=== PATIENT | male | born 1980 ===

== ENCOUNTER 2016-05-21 09:14 | Inpatient (IN) | payer MEDICAID ==
--- NOTE | 2016-05-21 10:03 | C.PDOC ---
History Of Present Illness 35 y/o male, whose PMHx includes anxiety and depression, presents to the ED complaining of hearing voices. Patient reports history of heroin abuse and states last use was yesterday. He denies any suicidal ideation, homicidal ideation, or physical complaints. Time Seen by Provider: 05/21/16 09:33 Chief Complaint (Nursing): Psychiatric Evaluation History Per: Patient History/Exam Limitations: no limitations Onset/Duration Of Symptoms: Days, Gradual, Persistent Current Symptoms Are (Timing): Still Present Suicide/Self Injury Attempted (Context): None Modifying Factor(s): Other (heroin) Involuntary Hold By: None Recent travel outside of the [place]: No Past Medical History Reviewed: Historical Data, Nursing Documentation, Vital Signs Vital Signs: Last Vital Signs Temp 97.7 F 05/21/16 09:21 Pulse 68 05/21/16 09:21 Resp 16 05/21/16 09:21 BP 114/84 05/21/16 09:21 Pulse Ox 100 05/21/16 12:09 - Medical History PMH: Asthma, Depression, Migraine Surgical History: No Surg Hx Family History: States: Diabetes (mom) - Social History Hx Tobacco Use: No Hx Alcohol Use: Yes (social) Hx Substance Use: Yes - Immunization History Hx Influenza Vaccination: No Review Of Systems Except As Marked, All Systems Reviewed And Found Negative. Musculoskeletal: Negative for: Other (pain) Psych: Positive for: Other (hearing voices). Negative for: Suicidal ideation ( or homicidal ideation) Physical Exam - Physical Exam Appears: Non-toxic, No Acute Distress Skin: Normal Color, Warm, Dry Head: Atraumatic, Normacephalic Eye(s): bilateral: Normal Inspection, PERRL Neck: Normal ROM Chest: Symmetrical Cardiovascular: Rhythm Regular Respiratory: Normal Breath Sounds, No Rales, No Rhonchi, No Wheezing Gastrointestinal/Abdominal: Normal Exam, Soft, No Tenderness Extremity: Normal ROM, No Swelling Neurological/Psych: Oriented x3, Normal Speech, Normal Cognition ED Course And Treatment - Laboratory Results Result Diagrams: 05/21/16 10:01 05/21/16 10:01 Lab Interpretation: Normal O2 Sat by Pulse Oximetry: 100 (ra) Pulse Ox Interpretation: Normal Progress Note: Blood Work and Urinalysis were ordered. Case discussed and patient evaluated by general foundry worker and request admission to Dr Monterroso Reassessment Condition: Unchanged - Physician Consult Information Physician Contacted: Tari Monterroso Outcome Of Conversation: admit Disposition Discussed With DrMarge: Tari Monterroso Doctor Will See Patient In The: Hospital - Disposition Disposition: HOSPITALIZED Disposition Time: 12:20 Condition: STABLE - POA Present On Arrival: None - Clinical Impression Clinical Impression: Schizophrenia, Opioid abuse - PA / MEDICAL RECORDS CLERK / Resident Statement MD/DO has reviewed & agrees with the documentation as recorded. - Scribe Statement The provider has reviewed the documentation as recorded by the Scribe (Susy Garcia) All medical record entries made by the Scribe were at my direction and personally dictated by me. I have reviewed the chart and agree that the record accurately reflects my personal performance of the history, physical exam, medical decision making, and the department course for this patient. I have also personally directed, reviewed, and agree with the discharge instructions and disposition. Decision To Admit - Pt Status Changed To: Hospital Disposition Of: Inpatient - Admit Certification Admit to Inpatient:: After my assessment, the patient will require hospitalization for at least two midnights. This is because of the severity of symptoms shown, intensity of services needed, and/or the medical risk in this patient being treated as an outpatient. - InPatient: Physician Admission Certification: I certify that this patient requires 2 or more midnights of care for the following reason:: Schizophrenia. Opioid abuse - . Bed Request Type: Psychiatry Admitting Physician: Tari Monterroso Patient Diagnosis: Schizophrenia, Opioid abuse
[2016-05-21 10:05] LABS: BASO % 0.5 % (0.0-2.0); EOS # 0.1 K/uL (0.0-0.7); EOS % 1.6 % (0.0-4.0); HEMATOCRIT 41.6 % (35.0-51.0); LYMPH # 1.1 K/uL (1.0-4.3); LYMPH % 17.1 % (20.0-40.0); MEAN CELL VOLUME 85.8 fL (80.0-94.0); MEAN CORPUSCULAR HEMOGLOBIN 28.7 pg (27.0-31.0); MEAN CORPUSCULAR HGB CONC 33.4 g/dL (33.0-37.0); MEAN PLATELET VOLUME 8.8 fL (7.2-11.7); MONO # 0.6 K/uL (0.0-0.8); MONO % 9.3 % (0.0-10.0); RED CELL DISTRIBUTION WIDTH 13.8 % (11.5-14.5); WHITE BLOOD COUNT 6.6 K/uL (4.8-10.8)
[2016-05-21 10:08] LABS: URINE BILIRUBIN NEGATIVE (NEGATIVE); URINE BLOOD NEGATIVE (NEGATIVE); URINE COLOR Straw (YELLOW); URINE GLUCOSE (UA) NORMAL (Normal); URINE KETONE NEGATIVE (NEGATIVE); URINE LEUKOCYTE ESTERASE NEG Leu/uL (Negative); URINE PROTEIN NEGATIVE (NEGATIVE); URINE UROBILINOGEN NORMAL mg/dL (0.2-1.0); WBC URINE 1 /hpf (0-5)
[2016-05-21 10:14] LABS: CHLORIDE 98 mmol/L (98-107); SODIUM 139 mmol/L (132-148)
[2016-05-21 10:15] LABS: POTASSIUM 4.6 mmol/L (3.6-5.2)
[2016-05-21 10:17] LABS: ALB/GLOB RATIO 1.4 (1.0-2.1); ALKALINE PHOSPHATASE 41 U/L (38-126); ALT/SGPT 13 U/L (21-72); AST/SGOT 22 U/L (17-59); BILIRUBIN,TOTAL 0.3 mg/dL (0.2-1.3); BLOOD UREA NITROGEN 15 mg/dL (9-20); CALCIUM 8.9 mg/dl (8.6-10.4); CARBON DIOXIDE 26 mmol/L (22-30); GFR AFRICAN-AMERICAN > 60; GLUCOSE,RANDOM 88 mg/dL (75-110); TOTAL PROTEIN 7.5 g/dL (6.3-8.3)
[2016-05-21 10:18] LABS: ALCOHOL SERUM < 10 mg/dl (0-10)
--- NOTE | 2016-05-22 11:18 | PCM.PSYCH ---
Initial Psychiatric Evaluation - Initial Psychiatric Evaluation Type of Admission: Voluntary Legal Status: Capacity Chief Complaint (in patient's own words): I'm feeling depressed History of Present Illness and Precipitating Events: Pt is a 35 yo M admitted for depressed mood and heroin withdrawal. Pt is single, has 2 children, ages 9 and 4, lives in a [address]cf for the past 2 months, and is currently unemployed (works in construction). Pt complains of depressed mood that began 2 months ago after losing his apartment. Associated symptoms include anhedonia, decreased energy, decreased appetite and poor sleep. Pt states he attempted suicide one month ago by taking pills, for which he received treatment at another hospital. Pt currently denies suicidal ideation , homicidal ideation. Admits to hearing commanding voices. There are multiple voices, both male and female, telling him to hurt himself and others. States he mostly hears the voices at night, which prevents him from sleeping. Also admits to visual hallucinations (shadows following him). States hallucinations resolve while he is on heroin. Pt started using heroin 6 months ago. Currently uses 20 bags per day intravenously. Reportedly tested negative for hepatitis C and HIV two weeks ago. Reports smoking cannabis occasionally and drinking alcohol socially. Smokes 3 cigarettes per day. Denies cocaine, PCP, amphetamine , ketamine, pain pills, benzodiazepines and all other drug use. Pt has no prior history of detox or rehab. 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 Pt currently complaining of withdrawal symptoms including anxiety, nausea, fatigue, rhinorrhea, headache. Denies abdominal cramping, vomiting, diarrhea, back pain, tremors. Psych Hx: Schizophrenia paranoid type, heroin use disorder, cannabis use disorder. Reports one previous psych admission [address] [facility] , follows up at [facility] outpatient services Family Psych Hx: uncle- anxiety and depression PMHx: Asthma, migraine headaches Medications: denies Current Medications: Active Medications Generic Name Dose Route Start Last Admin Trade Name Freq PRN Reason Stop Dose Admin Acetaminophen 650 mg 05/21/16 14:21 Tylenol 325mg Tab PO Q6 PRN Fever >100.4 F Citalopram Hydrobromide 10 mg 05/22/16 10:00 05/22/16 10:34 Celexa PO 10 mg DAILY VINOD Administration Clonidine HCl 0.1 mg 05/21/16 14:22 Catapres PO Q8 PRN COWS Score More or Equal to 5 Dicyclomine HCl 10 mg 05/21/16 14:21 Bentyl PO Q6 PRN Muscle spasm Diphenhydramine HCl 50 mg 05/21/16 14:21 Benadryl PO Q6 PRN Extra Pyramidal Symptoms Loperamide HCl 2 mg 05/21/16 14:21 Imodium PO Q8 PRN Diarrhea Methadone HCl 15 mg 05/22/16 10:00 05/22/16 10:34 Methadone PO 05/25/16 09:59 15 mg DAILY VINOD Administration Taper Ondansetron HCl 4 mg 05/21/16 14:21 Zofran Tab PO Q8H PRN Nausea/Vomiting Trazodone HCl 50 mg 05/21/16 22:00 05/21/16 21:47 Desyrel PO 50 mg HS VINOD Administration Past Psychiatric History - Past Psychiatric History Previous Treatment History: Inpatient Pertinent Medical Hx (Current Medical&Sleep Prob, Allergies): Allergies Allergy/AdvReac Type Severity Reaction Status Date / Time No Known Allergies Allergy Verified 05/21/16 09:21 No Known Home Med 05/21/16 Review of Systems - Review of Systems All systems: reviewed and no additional remarkable complaints except - Psychiatric Psychiatric: Anxiety, Auditory Hallucinations, Irritability, Mood Swings, Paranoia, Suicidal Ideation Mental Status Examination - Personal Presentation Personal Presentation: Looks stated age - Affect Affect: Constricted, Depressed - Motor Activity Motor Activity: Calm - Reliability in Providing Information Reliability in Providing Information: Good - Speech Speech: Organized - Mood Mood: Depressed, Anxious - Formal Thought Process Formal Thought Process: Hallucinations, Delusions, Paranoia - Hallucinations/Delusions Hallucinations: Visual, Auditory Delusions: Persecution - Obsessions/Compulsions Obsessions: No Compulsions: No - Cognitive Functions Orientation: Person, Place, Situation, Time Sensorium: Alert Attention/Concentration: Attentive Abstract Thinking: [place] Estimate of Intelligence: Below average Judgement: Imparied, as evidence by: Poor judgement, Imparied, as evidence by: Lack of insight into illness - Risk Risk: Suicidal, Withdrawal, Diminished functioning - Strength & Assets Inventory Strength & Assets Inventory: Cooperative - Limitations Limitations: Living alone DSM 5 DX - DSM 5 DSM 5 Diagnosis: Schizophrenia paranoid type continuous Opiate use disorder severe Opiate withdrawal Cannabis use disorder moderate - Recommended/Plan of Treatment Treatment Recommendations and Plan of Treatment: Schizophrenia paranoid type continuous CBT Psychoeducation Supportive therapy, group therapy, individual therapy Risperdal 1 mg by mouth twice a day Cogentin 1 mg by mouth twice a day Trazodone 50 mg by mouth daily at bedtime Celexa 10 mg daily Opiate use disorder severe CBT Psychoeducation Supportive therapy, individual therapy Use [place] for abstinence Opiate withdrawal CBT Psychoeducation Supportive therapy, individual therapy Methadone taper Cannabis use disorder moderate CBT and psychoeducation Use [place] for abstinence - Smoking Cessation Smoking Cessation Initiated: No
[2016-05-23] MEDS ORDERED: Propofol 10 mg/ml Inj (20 ML) ONE (10:04)
[2016-05-23] MEDS ORDERED: Midazolam 2 MG/2 ML VIAL ONE ×2 (10:06→11:00)
--- NOTE | 2016-05-23 15:29 | PCM.PYCHPN ---
Psychiatric Progress Note - Psychiatric Progress Note Patient seen today, length of contact: 15 min Patient Chief Complaint: I'm feeling depressed Problems Identified/Issues Discussed: Patient seen and evaluated, chart reviewed and discussed with the nurse. Patient reports irritability and agitation and reports auditory hallucinations and persecutory delusions. He reports racing of thoughts and anxiety. He still reports withdrawal symptoms including nausea, anxiety, headaches and sweating. However he remained calm and cooperative. He is taking medication and denies any side effects. Supportive therapy and psychoeducation were given Medication Change: Yes (Methadone taper) Medical Record Reviewed: Yes Mental Status Examination - Cognitive Function Orientation: Person, Place, Situation, Time Memory: Intact Attention: WNL Concentration: Poor Association: WNL Fund of Knowledge: Poor - Mood Mood: Depressed, Anxious - Affect Affect: Constricted, Depressed - Speech Speech: Soft - Formal Thought Process Formal Thought Process: Hallucinations, Delusions, Paranoia - Suicidal Ideation Suicidal Ideation: No - Homicidal Ideation Homicidal Ideation: No Goal/Treatment Plan - Goal/Treatment Plan Need for Continued Stay: Discharge may exacerbated symptoms, Severe functional impairment Progress Toward Problem(s) and Goals/Treatment Plan: Schizophrenia paranoid type continuous CBT Psychoeducation Supportive therapy, group therapy, individual therapy Risperdal 1 mg by mouth twice a day Cogentin 1 mg by mouth twice a day Trazodone 50 mg by mouth daily at bedtime Celexa 10 mg daily Opiate use disorder severe CBT Psychoeducation Supportive therapy, individual therapy Use [place] for abstinence Opiate withdrawal CBT Psychoeducation Supportive therapy, individual therapy Methadone taper Cannabis use disorder moderate CBT and psychoeducation Use [place] for abstinence - Smoking Cessation Smoking Cessation Initiated: No
--- NOTE | 2016-05-24 18:53 | PCM.PYCHPN ---
Psychiatric Progress Note - Psychiatric Progress Note Patient seen today, length of contact: 15 min Patient Chief Complaint: I'm feeling little better Problems Identified/Issues Discussed: Patient seen and evaluated, chart reviewed and discussed with the nurse. As per staff patient has started attending groups and meetings and remained calm and cooperative. Patient reports improvement in his voices and delusions. Reports improvement in his mood and anxiety. However he is still experiencing withdrawal symptoms including nausea, headaches and sweating. He is taking medication and denies any side effects. Supportive therapy and psychoeducation were given Medication Change: Yes (Methadone taper, increase Risperdal, start Neurontin) Medical Record Reviewed: Yes Mental Status Examination - Cognitive Function Orientation: Person, Place, Situation, Time Memory: Intact Attention: WNL Concentration: Poor Association: WNL Fund of Knowledge: Poor - Mood Mood: Depressed, Anxious - Affect Affect: Constricted, Depressed - Speech Speech: Soft - Formal Thought Process Formal Thought Process: Hallucinations, Delusions, Paranoia - Suicidal Ideation Suicidal Ideation: No - Homicidal Ideation Homicidal Ideation: No Goal/Treatment Plan - Goal/Treatment Plan Need for Continued Stay: Discharge may exacerbated symptoms, Severe functional impairment Progress Toward Problem(s) and Goals/Treatment Plan: Schizophrenia paranoid type continuous CBT Psychoeducation Supportive therapy, group therapy, individual therapy Risperdal 1 mg by mouth daily Risperdal 2 mg by mouth HS Cogentin 1 mg by mouth twice a day Trazodone 50 mg by mouth daily at bedtime Celexa 10 mg daily Neurontin 300 mg by mouth 3 times a day Opiate use disorder severe CBT Psychoeducation Supportive therapy, individual therapy Use [place] for abstinence Opiate withdrawal CBT Psychoeducation Supportive therapy, individual therapy Methadone taper Cannabis use disorder moderate CBT and psychoeducation Use [place] for abstinence
[2016-05-24] MEDS ORDERED: Albuterol HFA 90 mcg/actuation (8 g) INH PRN (21:42)
[2016-05-25 09:55] VITALS: O2SAT 97
--- NOTE | 2016-05-25 13:19 | PCM.PYCHPN ---
Psychiatric Progress Note - Psychiatric Progress Note Patient seen today, length of contact: 15 min Patient Chief Complaint: "I want to leave" Problems Identified/Issues Discussed: The pt is seen, chart reviewed, case discussed with staff. The pt is compliant with medications and reports no side-effects. Symptoms are improving but needs more time to stabilize. After care discussed, support and psychoeducation given. He agreed to stay Medication Change: No Medical Record Reviewed: Yes Mental Status Examination - Cognitive Function Orientation: Person, Place, Situation, Time Memory: Intact Attention: WNL Concentration: Poor Association: WNL Fund of Knowledge: Poor - Mood Mood: Depressed, Anxious - Affect Affect: Constricted - Speech Speech: Appropriate - Formal Thought Process Formal Thought Process: No Impairment - Suicidal Ideation Suicidal Ideation: No - Homicidal Ideation Homicidal Ideation: No Goal/Treatment Plan - Goal/Treatment Plan Need for Continued Stay: Discharge may exacerbated symptoms, Severe functional impairment Progress Toward Problem(s) and Goals/Treatment Plan: Continue medications Support and psychoeducation daily Attend groups and activities daily After care planning
[2016-05-25 17:18] VITALS: RESP 17
--- NOTE | 2016-05-26 09:35 | PCM.PYCHDC ---
Mental Status Examination - Mental Status Examination Orientation: Person, Place, Situation, Time Memory: Impaired Mood: Anxious Affect: Constricted Speech: Appropriate Attention: WNL Concentration: Poor Association: WNL Fund of Knowledge: WNL Formal Thought Process: No Impairment Suicidal Ideation: No Current Homicidal Ideation?: No Discharge Summary - Discharge Note Reason for Hospitalization: Depression, suicidal thoughts, AH, paranoia Consultations:: List each consultation separately and include: 1. Reason for request. 2. Findings. 3. Follow-up Summary of Hospital Course include:: 1. Description of specific treatment plan utilized for patients during their course of treatmen. 2. Summarize the time- course for resolution of acute symptoms and/or regressed behaviors. 3. Describe issues identified and worked on during hospitalization. 4. Describe medication utilized. 5. Describe medical problems identified and treated. 6. Reassessment of suicide risk Summary of Hospital Course: Hospital course: The pt was admitted and started on treatment with psychotherapy, support, psychoeducation and medications. ND and CBT used. The pt attended groups and activities, as well as milieu therapy. All the risks and benefits of medications are discussed and the patient understood and agreed. After care discussed with the patient and he agreed to go to an IOP but he was evasive. - Final Diagnosis (DSM 5) Condition upon Discharge: STABLE DSM 5: Psychosis - unspecified r/o Substance - induced psychosis Opiate use disorder severe Opiate withdrawal Cannabis use disorder moderate Disposition: HOME/ ROUTINE Follow-up Treatment Plan: Leaving early [facility] numbers and addresses provided Continue medications after discharge. Use relapse prevention skills Return to ER or call 911 if suicidal, homicidal or symptoms relapse. Stay away from stress, alcohol and drugs. Prescriptions/Medication Reconciliation: Gabapentin [Neurontin] 300 mg PO TID #90 cap risperiDONE [RisperDAL Tab] 2 mg PO HS #30 tab Albuterol HFA [Ventolin HFA 90 mcg/actuation (8 g)] 1 puff INH RQ4 PRN #1 inhaler PRN Reason: Shortness Of Breath Citalopram [celeXA] 10 mg PO DAILY #30 tab - Smoking Cessation Smoking Cessation Medication prescribed: No - Antipsychotic Medications Pt discharged on 2 or more routine antipsychotic medications: No
[2016-05-26 09:45] VITALS: BP 104/67; PULSE 108; TEMP 97.7
== END 2016-05-26 11:00 | disposition home or self-care (01) | DRG 744 ==
LOC: C.ER 09:14 → C.5E 12:10
PROVIDERS: ADMIT Psychiatry & Neurology Psychiatry; ATTEND Psychiatry & Neurology Psychiatry
PROC: HZ2ZZZZ Detoxification Services for Substance Abuse Treatment (ICD-10-PCS; principal; 2016-05-21)
PROC: GZHZZZZ Group Psychotherapy (ICD-10-PCS; 2016-05-21)
PROC: GZ56ZZZ Individual Psychotherapy, Supportive (ICD-10-PCS; 2016-05-21)
DX: F11.23 Opioid dependence with withdrawal (principal); F20.0 Paranoid schizophrenia; F17.210 Nicotine dependence, cigarettes, uncomplicated; F12.90 Cannabis use, unspecified, uncomplicated; J45.909 Unspecified asthma, uncomplicated; Z68.21 Body mass index [BMI] 21.0-21.9, adult

== ENCOUNTER 2016-07-08 00:55 | Emergency (ER) | payer MEDICAID ==
[2016-07-08] MEDS ORDERED: Albuterol 0.083% Inhal Sol (2.5 mg/3 mL) UD IH STA (02:17)
[2016-07-08] MEDS ORDERED: Albuterol 0.083% Inhal Sol (2.5 mg/3 mL) UD ONE (02:34)
--- NOTE | 2016-07-08 02:44 | C.PDOC ---
History Of Present Illness 35 yo male w/PMHx of asthma come in for evaluation of asthma exacerbation for past few days. Pt describes as chest tightness with dry cough. Otherwise, pt denies fever, chills, headache, dizziness, neck pain, drooling, dysphagia, dyspnea, SOB, diaphoresis, wheezing, palpitation, abd. pain, N/V/D, back pain, UTI sx. Pt also request psych evaluation due to depression. Pt sts, " I live in [place] and feel depressed and need help". Otherwise, pt denies suicidal or homocidal ideation or attempts. Ambulate to Ed for evaluation, not in any apparent distress. Time Seen by Provider: 07/08/16 01:36 Chief Complaint (Nursing): Respiratory Distress History Per: Patient Onset/Duration Of Symptoms: Gradual Current Symptoms Are (Timing): Still Present Past Medical History Reviewed: Historical Data, Nursing Documentation, Vital Signs Vital Signs: Last Vital Signs Temp 97.6 F 07/08/16 05:44 Pulse 68 07/08/16 05:44 Resp 20 07/08/16 05:44 BP 118/82 07/08/16 05:44 Pulse Ox 98 07/08/16 05:44 - Medical History PMH: Asthma, Depression, Migraine Denies: Diabetes, Hepatitis, HIV, HTN, Seizures, Sexually Transmitted Disease - [facility] Procedures DETOXIFICATION SERVICES FOR SUBSTANCE ABUSE TREATMENT (05/21/16) GROUP PSYCHOTHERAPY (05/21/16) INDIVIDUAL PSYCHOTHERAPY, SUPPORTIVE (05/21/16) Family History: States: Diabetes (mom) - Social History Hx Tobacco Use: No Hx Alcohol Use: No Hx Substance Use: Yes - Immunization History Hx Influenza Vaccination: No Review Of Systems Except As Marked, All Systems Reviewed And Found Negative. Constitutional: Negative for: Fever, Chills ENT: Negative for: Throat Pain Cardiovascular: Negative for: Chest Pain Respiratory: Positive for: Cough. Negative for: Shortness of Breath, Sputum, Wheezing Gastrointestinal: Negative for: Nausea, Vomiting, Abdominal Pain, Diarrhea Genitourinary: Negative for: Dysuria Skin: Negative for: Rash Neurological: Negative for: Weakness, Numbness, Altered Mental Status, Headache , Dizziness Physical Exam - Physical Exam Appears: Well, Non-toxic, No Acute Distress Skin: Normal Color, Warm, Dry, No Rash Eye(s): bilateral: PERRL Nose: No Discharge Oral Mucosa: Moist, No Drooling Throat: Normal, No Erythema, No Exudate, No Drooling, Other (uvula midine, no edema.) Neck: Supple Cardiovascular: Rhythm Regular Respiratory: No Decreased Breath Sounds, No Accessory Muscle Use, No Rales, No Rhonchi, No Stridor, No Wheezing Gastrointestinal/Abdominal: Soft, No Tenderness Extremity: No Pedal Edema, No Deformity Neurological/Psych: Oriented x3, Normal Speech ED Course And Treatment O2 Sat by Pulse Oximetry: 97 Pulse Ox Interpretation: Normal Progress Note: On re-eavluation, pt is afebrile, hemodynamicaly s table. not in any apaprent distress. PulsEOx 97% RA. ENT: no acute finidngs. neck: (-) meningeal sign. Lungs: CTA B/L, BS equal B/L. Abd: benign. Pt has clinical findings c/w asthma exacerbation, mild. Pt was seen and evaluated by PES and case discussed with psychiatrist on-call and discharge with outpt f/u recommend at this time. Info for outpt f/u given to pt by PES. Pt also recommend to F/u with PMD in 1-2 days for re-eval. Disposition Counseled Patient/Family Regarding: Diagnosis, Need For Followup, Rx Given - Disposition Referrals: [facility] [Outside] Disposition: HOME/ ROUTINE Disposition Time: 04:02 Condition: STABLE Additional Instructions: Take medication as prescribed Encourage fluids Follow up with PMd and Psychiatrist in 2-3 days for re-evaluation. Return to ED if any worsening or new changes. Prescriptions: Albuterol HFA [Ventolin HFA 90 mcg/actuation (8 g)] 1 puff IH Q6 #1 inhaler Prednisone [Deltasone] 20 mg PO DAILY #3 tablet Instructions: Asthma (ED), Mood Disorders (ED) Print Language: AZERI - Clinical Impression Clinical Impression: Asthma, Mood disorder
[2016-07-08 04:01] VITALS: RESP 20
[2016-07-08 05:49] VITALS: BP 118/82; PULSE 68; TEMP 97.6
[2016-07-08 06:49] VITALS: O2SAT 97
== END 2016-07-08 05:43 | disposition home or self-care (01) ==
LOC: C.ER 00:55
DX: J45.909 Unspecified asthma, uncomplicated (principal); F39 Unspecified mood [affective] disorder